=== PATIENT | male | born 1960 | race Caucasian/White ===

== ENCOUNTER 2024-10-18 08:21 | Outpatient (CLI) | payer OTHER ==
[2024-10-18 09:01] LABS: Estimated GFR - POC 68.0
[2024-10-18] MEDS ORDERED: Iopamidol 370 76% 100 ML VIAL ONE (10:09)
== END 2024-10-18 08:22 | disposition home or self-care (01) ==
LOC: CT 08:21
PROVIDERS: ATTEND Thoracic Surgery (Cardiothoracic Vascular Surgery)
DX: I65.23 Occlusion and stenosis of bilateral carotid arteries (principal)
CPT/HCPCS: 36415; 70498; 82565; Q9967

== ENCOUNTER 2024-11-07 15:26 | Observation (INO) | payer OTHER ==
[2024-11-07] MEDS ORDERED: Albuterol 2.5 MG (3 mL) NEB ONE (15:47)
[2024-11-07 16:00] LABS: #Basophils 0.05 10x3/uL (0.0-0.2); #Eosinophils 0.20 10x3/uL (0.0-0.7); #Monocytes 0.82 10x3/uL (0.11-0.59); #Neutrophils 6.76 10x3/uL (1.40-6.50); %Basophils 0.4 % (0.0-1.0); %Eosinophils 1.7 % (0.0-10.0); %Lymphocytes 30.5 % (21.0-51.0); %Monocytes 7.2 % (0.0-10.0); %Neutrophils 59.2 % (42.0-75.0); Hematocrit 40.8 % (42.0-52.0); Hemoglobin 13.8 g/dL (14.0-18.0); Mean Corpuscular Hemoglobin 32.7 pg (27.0-31.0); Mean Corpuscular Volume 96.7 fL (78.0-98.0); Platelet Count 398 10x3/uL (130-400); Red Blood Cell (RBC) Count 4.22 mill/uL (4.70-6.10); White Blood Cell (WBC) Count 11.44 10x3/uL (4.8-10.8)
[2024-11-07 16:19] LABS: ALT (SGPT) 18 U/L (Less than 45); AST (SGOT) 25 U/L (11-34); Albumin 4.1 g/dL (3.1-4.5); Alkaline Phosphatase 99 U/L (40-110); Anion Gap 17 mmol/L (10-20); BUN (Urea Nitrogen) 13 mg/dL (8.4-25.7); Bilirubin, Total 0.3 mg/dL (0.3-1.2); Calc. Creatinine Clearance 0 mL/min (70-130); Calcium 10.1 mg/dL (7.8-10.44); Carbon Dioxide 23 mmol/L (23-31); Chloride 102 mmol/L (98-107); Globulin 3.5 g/dL (2.4-3.5); Glucose 97 mg/dL (80-115); Potassium 4.4 mmol/L (3.5-5.1); Sodium 138 mmol/L (136-145)
[2024-11-07] MEDS ORDERED: Metoclopramide HCl 10 MG (2 mL) VIAL ONE (16:50)
[2024-11-07] MEDS ORDERED: Ondansetron PF 4 MG/2 ML Vial IVP PRN (17:08)
[2024-11-07] MEDS ORDERED: Nitroglycerin 0.4 MG TAB (25 Tab Bottle) SL PRN (17:08)
[2024-11-07] MEDS ORDERED: Guaifenesin DM 100-10/5 ML UDCUP PO PRN (17:08)
[2024-11-07] MEDS ORDERED: Electrolyte Replacement Protocol 1 EACH FS SCH (17:15)
[2024-11-07] MEDS: ALPRAZolam 0.5 MG TAB PO PRN (19:41)
[2024-11-07] MEDS: Pantoprazole 40 MG DR.TAB PO SCH (20:49)
[2024-11-07] MEDS: Melatonin 3 MG TAB PO PRN (20:49)
[2024-11-07] MEDS: Amoxicillin/Potassium Clav 875 MG TAB PO SCH (20:49)
[2024-11-07] MEDS: Gabapentin 300 MG CAP PO SCH (20:49)
[2024-11-07] MEDS ORDERED: Famotidine 20 MG TAB PO SCH (21:00)
[2024-11-07] MEDS ORDERED: Famotidine/PF 20 mg/2ml Vial SLOW IVP SCH (21:00)
[2024-11-07 22:06] VITALS: BMI 31.7
[2024-11-08] MEDS: Acetaminophen 325 MG TAB PO PRN (05:21)
[2024-11-08 05:30] LABS: ALT (SGPT) 17 U/L (Less than 45); AST (SGOT) 21 U/L (11-34); Albumin 4.0 g/dL (3.1-4.5); Alkaline Phosphatase 95 U/L (40-110); Anion Gap 14 mmol/L (10-20); BUN (Urea Nitrogen) 16 mg/dL (8.4-25.7); Bilirubin, Direct 0.1 mg/dL (0.1-0.3); Bilirubin, Total 0.3 mg/dL (0.3-1.2); Calc. Creatinine Clearance 110 mL/min (70-130); Calcium 9.8 mg/dL (7.8-10.44); Carbon Dioxide 23 mmol/L (23-31); Cardiac Risk 3.7 (Less than 4.5); Chloride 104 mmol/L (98-107); Cholesterol 185 mg/dl (< 200 Desired); Glucose 124 mg/dL (80-115); HDL Cholesterol 50 mg/dL (>60 Neg Risk); LDL Cholesterol, Calculated 110 mg/dL; Potassium 5.0 mmol/L (3.5-5.1); Sodium 136 mmol/L (136-145); Triglycerides 126 mg/dL (Less than 150)
[2024-11-08] MEDS: Aspirin Chewable 81 MG TAB PO SCH (09:11)
[2024-11-08] MEDS: predniSONE 20 MG TAB PO SCH (09:12)
[2024-11-08] MEDS: Lisinopril 20 MG TAB PO SCH (09:12)
[2024-11-08] MEDS: HYDROcodone/Acetaminophen 5/325 mg Tablet PO PRN (09:13)
[2024-11-08] MEDS: Enoxaparin 40 MG (0.4 mL) SYRINGE SC SCH (11:26)
[2024-11-08] MEDS: Ketorolac Tromethamine 30 MG (1 mL) VIAL IVP SCH (14:47)
[2024-11-08 15:28] VITALS: BP 136/89; TEMP 97.7
== END 2024-11-08 18:24 | disposition home or self-care (01) ==
LOC: ERS 15:26 → 2NO 17:13
PROVIDERS: ADMIT Family Medicine; ATTEND Internal Medicine
DX: R07.89 Other chest pain (principal); R10.11 Right upper quadrant pain; I77.9 Disorder of arteries and arterioles, unspecified; I10 Essential (primary) hypertension; J44.9 Chronic obstructive pulmonary disease, unspecified; H34.9 Unspecified retinal vascular occlusion; F41.9 Anxiety disorder, unspecified; Z86.73 Personal history of transient ischemic attack (TIA), and cerebral infarction without residual deficits; Z95.5 Presence of coronary angioplasty implant and graft; Z87.891 Personal history of nicotine dependence; Z98.890 Other specified postprocedural states; Z88.8 Allergy status to other drugs, medicaments and biological substances; Z79.82 Long term (current) use of aspirin; Z79.51 Long term (current) use of inhaled steroids; Z79.899 Other long term (current) drug therapy
CPT/HCPCS: 71045; 76705; 78452; 80048; 80053; 80061; 80076; 83036; 83690; 84484 ×2; 85025; 93005; 93017; 94640 ×3; 94760; 96374; 96375; 99285; A9502; J1885; J2765; J2785 ×2; J2919; 36415; G0378; J7512; J7611; J7620

== ENCOUNTER 2025-01-07 08:18 | Outpatient (CLI) | payer OTHER | END 2025-01-07 08:19 | disposition home or self-care (01) | LOC: ULT 08:18 | PROVIDERS: ATTEND Registered Nurse | DX: Z13.6 Encounter for screening for cardiovascular disorders (principal) | CPT/HCPCS: 76706 ==